=== PATIENT | female | born 1945 | race Caucasian/White ===

== ENCOUNTER 2025-02-13 22:13 | Inpatient (IN) | payer MEDICARE, OTHER, SELFPAY ==
[2025-02-13 17:13] VITALS: BP 126/94; BMI 17.9
[2025-02-13 17:53] LABS: % Basophils 0.4 % (0-2); % Eosinophils 0.4 % (0-6); % Immature Granulocytes 0.4 % (0-0.5); % Lymphocytes 11.5 % (20.5-51.1); % Monocytes 9.2 % (1.7-9.3); % Neutrophils 78.1 % (42.2-75.2); Absolute Basophils 0.1 10^3/uL (0-0.2); Absolute Eosinophils 0.1 10^3/uL (0-0.7); Absolute Immature Granulocytes 0.1 10^3/uL (0-0.05); Absolute Lymphocytes 1.4 10^3/uL (1.2-3.4); Absolute Monocytes 1.1 10^3/uL (0.1-0.6); Absolute Neutrophils 9.2 10^3/uL (1.4-6.5); Hematocrit 42.3 % (37.0-47.0); Hemoglobin 15.2 g/dL (12.0-16.0); Mean Corp Hgb Conc. 35.9 g/dL (33.0-37.0); Mean Corpuscular Hgb 33.4 pg (27.0-31.0); Mean Platelet Volume 9.8 fL (7.4-10.4); Nucleated Red Blood Cells % 0 %; Platelet Count 294 10^3/uL (130-400); Red Blood Cell Count 4.55 10^6/uL (4.20-5.40); Red Cell Dist. Width 12.6 % (11.5-14.5); White Blood Cell Count 11.8 10^3/uL (4.8-10.8)
[2025-02-13 19:36] VITALS: BP 123/85
[2025-02-13 20:00] VITALS: BP 125/86
[2025-02-13 20:11] LABS: ALT (SGPT) 17 U/L (0-35); AST (SGOT) 21 U/L (14-36); Albumin 2.8 g/dl (3.5-5.0); Alkaline Phosphatase 59 U/L (38-126); Blood Urea Nitrogen 13 mg/dl (7-17); Carbon Dioxide 27 mmol/L (22-30); Chloride 101 mmol/L (98-107); Creatine Phosphokinase < 20 U/L (30-135); Estimated Creatinine Clearance 54 ml/min; Glucose 89 mg/dl (70-99); Magnesium 1.5 mg/dl (1.6-2.3); Potassium 2.8 mmol/L (3.5-5.1); Sodium 132 mmol/L (135-145); Total Protein 5.2 g/dl (6.3-8.2); eGFR > 60.00
--- NOTE | 2025-02-13 20:39 | ED.GENMED ---
History of Present Illness
General
Chief Complaint: Failure to Thrive
Source: patient and family
Exam Limitations: none
Time Seen by Provider: 02/13/25 19:59
Nursing documentation reviewed up to this point in time: agreed with
History of Present Illness
History of Present Illness:
The patient is a 79-year-old female presenting with recurrent falls occurring approximately four times over the past week. The falls were primarily due to perceived leg weakness rather than dizziness or lightheadedness. Her gait instability
reportedly began this week. There is no significant history of falls prior to this. The patient recently moved to an assisted living facility within the last month. She reports a chronic lack of appetite, persisting for two years, with minimal
dietary intake primarily consisting of wine. Theres no mention of chronic medical conditions or daily medication use. Upon examination, the patient displayed a fluctuating heart rate, ranging from the 50s to 120s. Electrolyte imbalances were noted
with low potassium and magnesium levels, potentially diet-related. A recent head CT demonstrated no emergent findings but did show chronic changes consistent with age.
Past History
Past History
ED Past Medical History: HTN, Other (Cataracts, glaucoma) and Other (Chronic neck and low back pain. Cervical DJD. Psoriasis.)
Social History
Tobacco: Non-smoker
Alcohol: Daily (2-3 glasses of wine daily)
Drug: None
Personal:
Living: alone
Employment: Retired
Family History
Family History: Other (Noncontributory)
Review of Systems
Review of Systems
Allergies reviewed?: Yes
All Other Systems: ROS reviewed and negative except as documented in HPI and ROS
Phy Exam
Physical Exam
Physical Exam:
GENERAL: Alert , in no apparent distress
EYE: pupils equal and reactive
NECK: Supple, no significant adenopathy.
ENT: o/p clr, mmm.
CARDIAC: Regular rate and rhythm .
LUNGS: Clear breath sounds bilaterally, no acute respiratory distress, no wheezes/rales/rhonchi
ABDOMEN: Soft, without focal tenderness, no r/g, no cvat
NEUROLOGICAL: Alert and oriented, no focal neuro deficits
SKIN: Warm and dry, skin intact.
MUSCULOSKELETAL: No edema, well perfused.
PSYCH: Normal and appropriate interaction.
Course
Orders/Labs/Results
Orders:
Orders
02/13/25 17:43
EKG [Electrocardiogram (*1)] Urgent
Reason for Study: Fatigue / Weakness
EKG- Treatment ONCE
02/13/25 17:45
Complete Blood Count/With Diff Urgent
02/13/25 18:46
CT Head W/o Iv Contrast Urgent
Comment:
Reason For Exam: fall with head strike
02/13/25 19:32
Alcohol Urgent
Comprehensive Metabolic Panel Urgent
Creatine Phosphokinase Urgent
Magnesium Urgent
TSH Reflex To Free T4 Urgent
Comment: ADD ON
02/13/25 19:37
Add On- LAB Urgent
Tests Added?: CPK
02/13/25 20:38
Add On- LAB Urgent
Tests Added?: alcohol level
Multivitamin [Theragran] 1 tablet PO NOW STA
Potassium Chloride Powder [Klor-Con] 20 meq PO NOW STA
Thiamine HCl [Vitamin B1] 100 mg PO NOW STA
02/13/25 20:47
Add On- LAB Urgent
Tests Added?: TSH free 'T4
02/13/25 20:48
Potassium Chloride [KCl] 20 meq 0.9% Sodium Chloride 150 ml [Nss] 150 ml IV NOW
02/13/25 20:49
Magnesium Sulfate 1 grams 0.9% Sodium Chloride 100 ml [Nss] 100 ml IV NOW
02/13/25 21:27
Troponin I Routine
02/13/25 21:34
Admit/Transfer Patient As Directed
Co-Sign Provider:
Level of Care: Inpatient admission
Assign to:: Telemetry
Physician / Group: [email or web address]
Diagnosis: Falls, ambulatory dysfunction, Intermittent tachycardia
Reason for Telemetry: Other
Other Reason for Telemetry: Intermittent tachycardia
Date to Stop Telemetry: 02/15/25
Time to Stop Telemetry: 11:00
Reason for Hospitalization: Falls, ambulatory dysfunction, Intermittent tachycardia concerning for ETOH WDS,
protein calorie malnutrition, Low K and low Mg
Expected length of stay greater than two midnights?: Yes
ELOS- Estimated Length of Stay in days: 3
I certify the patient meets the requirements for IP care: Yes
02/13/25 21:38
Code Status As Directed
Resuscitation Status: Full Code
02/13/25 22:47
0.9% Sodium Chloride 1000 ml [Nss] 1,000 ml IV 80 mls/hr
0.9% Sodium Chloride [Nss (Preservative Free)] See Protocol IV PRN PRN
Acetaminophen [Tylenol] 650 mg PO Q4HPRN PRN
Bisacodyl [Dulcolax] 10 mg RECTAL [id number] PRN
Docusate W/Senna [Senokot-S] 1 tablet PO BIDPRN PRN
FOLic ACID [Folvite] 1 mg 0.9% Sodium Chloride 50 ml [Nss] 50 ml IV DAILYPRN
Lorazepam [Ativan] 1 mg IV Q1HPRN PRN
Lorazepam [Ativan] 1 mg PO Q2HPRN PRN
Lorazepam [Ativan] 2 mg IV Q1HPRN PRN
Polyethylene Glycol Powder [Miralax] 17 grams PO DAILYPRN PRN
02/13/25 22:47
Case Management Consult Once
Case Management Consult: Other
Comment: Substance abuse counseling
DIETARY IP CONSULT Routine
Reason for Consult: Nutrition support, possible refeeding guidelines
DIETARY IP CONSULT Routine
Reason for Consult: protein calorie malnutrtion due to poor PO diet,
GGTP Urgent
Activity As Directed
Activity Level: With Assistance
MSAS SCORE As Directed
MSAS Score 0-4: Repeat MSAS every 2 hours until 0-4 for three consecutive assessments, then every 4 hours x 48
hours.
MSAS Score 5-7: For MILD withdrawl symptoms. Repeat MSAS and RASS every 2 hours
MSAS Score 8-11: For MODERATE withdrawal symptoms. Repeat MSAS and RASS every 1 hour. Consider ICU or IMU
level of care.
MSAS Score > 11: For SEVERE withdrawal symptoms. Repeat MSAS and RASS every 1 hour. Notify provider, consider
ICU level of care.
MSAS Additional Instructions: If no improvement or no decrease in score from severe to moderate within 12
hours, consult psychiatry
MSAS Notify Provider: Notify provider if patient requires more than 10 mg of Lorazepam in eight hour period.
Vital Signs As Directed
Frequency: Per unit guidelines
Weight As Directed
Frequency: Weekly
DX Deep Vein Thrombosis Video Routine
02/13/25 23:11
Urinalysis Reflex To Culture Urgent
Date Specimen was Collected: 02/13/25
Time Specimen was Collected: 23:10
02/14/25 00:00
Thiamine Injection 200 mg IV Q8
02/14/25 Breakfast
Regular
At Your Request: Full Participation
Complete Blood Count/No Diff IN AM
Comprehensive Metabolic Panel IN AM
Ferritin IN AM
Folate IN AM
Vitamin B12 IN AM
02/14/25 08:00
FOLic ACID [Folvite] 1 mg PO DAILY
Heparin 5,000 units SC Q12
02/15/25 11:00
DC Protocol for Telemetry ONCE
02/17/25 08:00
Thiamine HCl [Vitamin B1] 100 mg PO BID
Abnormal Lab Results
02/13/25 02/13/25
17:45 19:32
WBC 11.8 H 10^3/uL
(4.8-10.8)
MCH 33.4 H pg
(27.0-31.0)
Abs Immat Gran (auto) 0.1 H 10^3/uL
(0-0.05)
Absolute Neuts (auto) 9.2 H 10^3/uL
(1.4-6.5)
Absolute Monos (auto) 1.1 H 10^3/uL
(0.1-0.6)
Neutrophils % 78.1 H %
(42.2-75.2)
Lymphocytes % 11.5 L %
(20.5-51.1)
Sodium 132 L mmol/L
(135-145)
Potassium 2.8 L mmol/L
(3.5-5.1)
Magnesium 1.5 L mg/dl
(1.6-2.3)
Total Bilirubin 2.0 H mg/dl
(0.2-1.3)
Creatine Kinase < 20 L U/L
(30-135)
Total Protein 5.2 L g/dl
(6.3-8.2)
Albumin 2.8 L g/dl
(3.5-5.0)
02/13/25 17:45
02/13/25 19:32
Vital Signs
Initial and Last Documented VS:
Initial Vital Signs
Temp Pulse Resp BP Pulse Ox
97.7 F 103 14 126/94 95
02/13/25 17:13 02/13/25 17:13 02/13/25 17:13 02/13/25 17:13 02/13/25 17:13
Last Documented Vital Signs
Temp Pulse Resp BP Pulse Ox
97.7 F 75 16 151/108 98
02/13/25 22:47 02/13/25 22:47 02/13/25 22:47 02/13/25 22:47 02/13/25 22:47
MDM/Problems Addressed
MDM/Problems Addressed:
The patient will be admitted to monitor the fluctuating heart rate and address electrolyte imbalances. Physical therapy evaluation for balance is planned, and dietary assessment will be conducted to optimize nutritional intake. Here patient's
electrolytes showing low potassium 2.8 as well as magnesium 1.5. Patient was given IV doses of this as well as oral dose and thiamine. She does apparently drink wine daily roughly 1 bottle per day. She was given dose of thiamine. CT without
emergent findings otherwise plan to admit considering multiple potential acute abnormalities with significant amatory dysfunction.
*Pulse Oximetry
SaO2: 98
Oxygen Mode of Delivery: Room air
Patient hypoxic: no
*Critical Care Note
Total Time (30-74mins, 75-104mins- exclusive of procedures): Not Applicable
ED Attending Note
-
Portions of this chart may have been created with voice recognition software.� Occasional wrong word or��sound alike� substitutions may have occurred due to the inherent limitations of voice recognition software.
Discharge Plan
Departure
Patient Disposition: Admit
Date of Disposition: 02/13/25
Time of Disposition: 22:08
Admit to: Telemetry
Admit to doctor: Sneha
Presentation/result/management discussed w/ accepting MD/DO: Hospitalist
Patient with high blood pressure during this ER visit?: No
Condition: Good
Covid-19: Not Applicable
Discharge Problem:
Ambulatory dysfunction, Acute hypokalemia, Hypomagnesemia, Atrial tachycardia, Alcohol abuse, Frequent falls
Interventions
Interventions:
*Risk Screen - Suicide Last Done: 02/13/25 17:13
*General Assessment Last Done: 02/13/25 17:13
*Neglect/Abuse Screening Last Done: 02/13/25 17:13
*ED- Fall Risk Assessment Last Done: 02/13/25 17:13
*ED COVID-19 Vaccine History Last Done: 02/13/25 17:13
*Nursing Disposition Last Done: 02/13/25 22:22
Discharge Date and Time
Discharge Date/Time: 02/13/25 22:22
[2025-02-13] MEDS: VITAMIN B1 100 MG PO (21:01)
[2025-02-13] MEDS: THERAGRAN 1 TABLET PO (21:01)
--- NOTE | 2025-02-13 21:17 | HPS.HSE ---
Family Physician
-
Family Physician: Zackary Juan
Chief Complaint
-
recuurent falls and Steven wekness
History of Present Illness
79F recent assisted living resident HX HTN, Chronic neck and low back pain. Cervical DJD seen at ER for falls:
- recurrent falls occurring four times over the past week
- report perceived leg weakness rather than dizziness or lightheadedness.
- Gait instability reportedly began this week
- recently moved to an assisted living facility within the last month.
- HX chronic lack of appetite, persisting for two years, with minimal dietary intake primarily consisting of wine.
- no mention of chronic medical conditions or daily medication use.
Medical History
Past Medical History
Past Medical History: Reports HTN and Other (Cataracts, glaucoma) and Other (Chronic neck and low back pain. Cervical DJD, Psoriasis.)
Past Surgical History: Reports Cardiac
Social History
Tobacco: Non-smoker
Alcohol: Daily
Drug: None
Living: Assisted Living
Family History
Family History: Not pertinent
Allergies / Home Medications
Allergies reflects when Allergies were last updated in [employer].
Home Medications with original date entered in [employer]
Allergy/Medication List:
Allergies
Allergy/AdvReac Type Severity Reaction Status Date / Time
No Known Allergies Allergy Verified 05/11/23 21:46
Home Medications
No Meds [No Current Medications] 02/13/25
Review of Systems
-
Constitutional: Reports No Symptoms
EENT: Reports No Symptoms
Respiratory: Reports No Symptoms
Cardiac: Reports No Symptoms
Abdomen/GI: Reports No Symptoms
: Reports No Symptoms
Musculoskeletal: Reports See HPI
Skin: Reports No Symptoms
Neurological: Reports See HPI
Endocrine: Reports No Symptoms
Hematologic/Lymphatic: Reports No Symptoms
Psych: Reports No Symptoms
Physical Exam
Vital Signs
Vital Signs
Temp Pulse Resp BP Pulse Ox
97.7 F 116 20 125/86 98
02/13/25 17:13 02/13/25 20:30 02/13/25 20:30 02/13/25 20:00 02/13/25 20:40
Physical Exam
HEENT: NormoCephalic, Moist mucous membranes and Atraumatic
Respiratory: Clear
Cardiac: S1/S2 and Regular Rhythm; No Murmur or Rub
GI: Soft, Non Tender, Non Distended and Normal Bowel Sounds; No Organomegaly
Rectal: Deferred by Provider
Musculoskeletal: No Clubbing, No Cyanosis and No Edema
Skin: No Rash
Neuro: Nonfocal/grossly intact
Laboratory Results
-
02/13/25 17:45
02/13/25 19:32
Laboratory Results
Total Bilirubin 2.0 mg/dl (0.2-1.3) H 02/13/25 19:32
AST 21 U/L (14-36) 02/13/25 19:32
ALT 17 U/L (0-35) 02/13/25 19:32
Alkaline Phosphatase 59 U/L (38-126) 02/13/25 19:32
Data Reviewed
-
CT Scan: Report Reviewed by me
Lab Data: Labs Reviewed by me
Impression/Plan
-
Selected Entries
02/13/25
17:13
Temp 97.7 F
Pulse 103
Resp Rate 14
Blood pressure 126/94
SaO2 95
Oxygen Mode of Delivery Room air
Laboratory Tests
02/13/25 02/13/25 02/13/25
17:45 19:32 20:59
WBC 11.8 H
Sodium 132 L
Potassium 2.8 L
Creatinine 0.6
eGFR > 60.00
Magnesium 1.5 L
Total Bilirubin 2.0 H
Creatine Kinase < 20 L
Troponin I Pending
Albumin 2.8 L
TSH (Reflex) Pending
Pending UA
Pending TPNI
Pending TSH
Pending ETOH level
HCT
1. No CT evidence for acute intracranial hemorrhage.
2. Moderate bilateral frontal and parietal lobe volume loss.
3. Moderate cerebellar volume loss.
4. Severe white matter leukoaraiosis in the frontal and parietal lobes.
5. Chiari I malformation.
NO PRIOR hospitalist admission:
ASSESSMENT & PLAN
Pending Rx reconciliation
Falls and ambulatory dysfunction
DDX: ETOH associated balance dysfunction , myopathy , peripheral neuroapthy and ataxia
- 5 falls in the last week due to weakness
- Nl CPK
- Pending TSH
- check B12 and Folate
- PT/OT
Intermittent tachycardia concerning for ETOH WDS
Suspect ETOH use disorder
- check GGT
- EtOH WD protocol
- Fall precaution
Suspect ETOH use disorder led to protein calorie malnutrition due to inadequate PO nutritious diet consumption
Mild Hypokalemia - s/p IV KCL 20 [place] + PO 20
Mild Hypomagnesemia - s/p IV Mg 1gm
Hypoalbuminemia
- Trend Mg and K
- Dietary consult
HX HTN
DVT Px: SQH
Code: Full
IP TLM
[2025-02-13] MEDS: MAGNESIUM SULFATE 102 GRAMS IV (21:22)
[2025-02-13] MEDS: KCL 160 MEQ IV (21:22)
[2025-02-13 21:52] LABS: TSH Reflex To Free T4 0.66 uIU/ml (0.47-4.68)
[2025-02-13 22:00] VITALS: BP 123/90
[2025-02-13 22:05] LABS: Troponin I < 0.012 ng/ml
--- NOTE | 2025-02-13 22:40 | PTCARENOTE ---
Pt admitted to 316-2 from ED, pulled over to bed. AAOx3, forgetful. bed alarm on and activated. Denies complaints. Call romo within reach.
[2025-02-13 22:47] VITALS: BP 151/108; BMI 19.7
[2025-02-13 23:18] LABS: Urine Albumin 2+ (Neg - Trace); Urine Bilirubin 1+ (Negative); Urine Character Clear (Clear); Urine Color Yellow; Urine Glucose Negative (Negative); Urine Ketone 1+ (Negative); Urine Leukocyte 2+ (Negative); Urine Nitrite Negative (Negative); Urine Occult Blood 4+ (Negative); Urine Urobilinogen 3+ (Neg - 1+)
[2025-02-13 23:20] LABS: Alcohol None Detected
[2025-02-13 23:32] LABS: Urine Squamous Cell 16-20 /LPF (Few)
[2025-02-13 23:33] LABS: Urine Bacteria Many (Negative); Urine Red Blood Cell >100 /HPF (0-2)
[2025-02-13] MEDS: NSS 1000 IV (23:39)
[2025-02-13] MEDS: THIAMINE INJECTION 200 MG IV (23:46)
[2025-02-14] VITALS (8 sets, daily range): BP systolic 128–151; BP diastolic 79–98; PULSE 80; O2SAT 99; BMI 19.7
[2025-02-14 00:14] LABS: GGTP 28 U/L (12-43)
[2025-02-14 08:36] LABS: Hematocrit 38.9 % (37.0-47.0); Hemoglobin 13.4 g/dL (12.0-16.0); Mean Corp Hgb Conc. 34.4 g/dL (33.0-37.0); Mean Corpuscular Hgb 32.8 pg (27.0-31.0); Mean Corpuscular Volume 95.3 fL (81.0-99.0); Mean Platelet Volume 10.4 fL (7.4-10.4); Platelet Count 263 10^3/uL (130-400); Red Blood Cell Count 4.08 10^6/uL (4.20-5.40); Red Cell Dist. Width 12.3 % (11.5-14.5); White Blood Cell Count 9.6 10^3/uL (4.8-10.8)
[2025-02-14 09:06] LABS: ALT (SGPT) 16 U/L (0-35); AST (SGOT) 23 U/L (14-36); Albumin 2.7 g/dl (3.5-5.0); Alkaline Phosphatase 67 U/L (38-126); Blood Urea Nitrogen 12 mg/dl (7-17); Calcium 8.8 mg/dl (8.4-10.2); Carbon Dioxide 26 mmol/L (22-30); Chloride 103 mmol/L (98-107); Estimated Creatinine Clearance 56 ml/min; Glucose 58 mg/dl (70-99); Potassium 3.8 mmol/L (3.5-5.1); Sodium 134 mmol/L (135-145); Total Bilirubin 1.7 mg/dl (0.2-1.3); eGFR > 60.00
[2025-02-14] MEDS: SENOKOT-S 1 TABLET PO (09:24)
[2025-02-14] MEDS: TYLENOL 650 MG PO ×3 (09:24→21:13)
[2025-02-14] MEDS: NSS 1000 IV (09:24)
[2025-02-14] MEDS: FOLVITE 1 MG PO (09:24)
[2025-02-14] MEDS: TRUSOPT 2% OPHTHALMIC SOLUTION 1 DROP BOTH EYES ×2 (09:25→19:52)
[2025-02-14] MEDS: TIMOPTIC 0.5% OPHTHALMIC SOLUTION 1 DROP BOTH EYES ×2 (09:25→19:52)
[2025-02-14] MEDS: HEPARIN 5000 UNITS SC ×2 (09:26→19:52)
[2025-02-14] MEDS: THIAMINE INJECTION 200 MG IV ×2 (09:46→16:15)
[2025-02-14 10:04] LABS: Folate 7.2 ng/ml (2.76-20); Vitamin B12 620 pg/ml (239-931)
--- NOTE | 2025-02-14 10:46 | CM ---
Patient seen at bedside on . Patient stated that she is currently living at [facility]. Patient chart reflects address of [facility] but no transfer form scanned in at this time. PCP is Dr. Zackary Juan and patient stated that she is in the
facility and is uncertain if she is SNF or Personal Care level needs. CM called and left for SNF liaison at [facility]. Awaiting call back. CM will continue to follow for discharge planning needs.
Plan; return to facility following clarification as to which level patient is at.
[2025-02-14 11:22] LABS: Magnesium 2.1 mg/dl (1.6-2.3); Phosphorus 2.9 mg/dl (2.5-4.5)
--- NOTE | 2025-02-14 11:51 | W.PN.HOSP.TC ---
Today's Communication/Plan
-
Check a chest x-ray
Continue with IV fluid
Dietary eval
Speech evaluation
PT evaluation
Assessment / Plan
Assessment / Plan
#Falls and ambulatory dysfunction likely 2/2 ETOH associated balance dysfunction, intoxication, peripheral neuroapthy and ataxia
#5 falls in the last week due to weakness
TSH normal
B12 folate normal
PT and OT evaluation
CT head negative for acute pathology
Check a chest x-ray, bilateral hip x-ray with pelvis x-ray
#Intermittent tachycardia concerning for ETOH WDS
#Suspect ETOH use disorder
Continue with IV fluid resuscitation.
EtOH WD protocol
Fall precaution
#Suspect ETOH use disorder led to protein calorie malnutrition chronic illness due to inadequate PO nutritious diet consumption
#Hypokalemia hypomagnesemia
#Hypoalbuminemia
Trend Mg and K. Replete and monitor
Dietary consult
Counseled on complete alcohol cessation as patient with increased risk of falls leading to fractures, cerebral hemorrhage. Patient verbalized understanding.
#Mild hyponatremia likely secondary to dehydration
Resolved
#Suspected dysphagia
Check chest x-ray
Speech evaluation
DVT Px: SQH
Code: Full
Anticipated Discharge: > 48 hours
Subjective/Interval History
-
Date of Service: February 14, 2025
States of poor appetite at home
States drinks half a bottle of wine every day
States of multiple falls at home
Denies any hip pain
Objective Data
-
Labs:
Laboratory Results
02/14/25
06:02
WBC 9.6
Hgb 13.4
Hct 38.9
Plt Count 263
Sodium 134 L
Potassium 3.8 D
Chloride 103
Carbon Dioxide 26
BUN 12
Creatinine 0.6
Glucose 58 L
Calcium 8.8
Total Bilirubin 1.7 H
AST 23
ALT 16
Alkaline Phosphatase 67
Vital Signs:
Vital Signs
Temp Pulse Resp BP Pulse Ox
97.6 F 71 16 135/90 99
02/14/25 11:27 02/14/25 11:27 02/14/25 11:27 02/14/25 11:27 02/14/25 11:27
I&O
02/13/25 02/14/25 02/15/25
06:59 06:59 06:59
Intake Total 720 / 720
Balance 720 / 720
Physical Exam
-
General: No Apparent Distress and Cachectic
HEENT: Normocephalic, Atraumatic, Moist Mucous Membranes and Other (Right lower jaw bruise noted)
Respiratory: Clear to Auscultation
Cardiac: Regular Rhythm and S1/S2; Negative Murmur, Rub or Gallop
GI: Soft, Nontender, Nondistended and Normal Bowel Sounds; Negative Organomegaly
Rectal: Deferred by Provider
Musculoskeletal: No Clubbing, No Cyanosis and No Edema
Skin: Negative Rash
Neuro: Awake, AO x 3, No Motor Deficits and Nonfocal/Grossly Intact
Psych: Calm
Data Reviewed
-
Total Time Spent with Patient (in minutes): 55
--- NOTE | 2025-02-14 11:54 | PTCARENOTE ---
Mrs Chand had a Cervical plasty several years ago and has has progressive issues with inability to eat since that time. In addition to the cervical plasty procedure she started drinking about a half a bottle of wine a day. PT is alert able to make
needs known, cachectic appearing ith severe clavicular scapula christianity and scapula muslce loss and orbital fat pad loss. PT stated she has lost well over thirty pounds this year and has minimal food intake. admits to drinking instead. PT with CT
scan showing Munira fomration 1, aware, . I gave her one pill and she had tremendous difficulty getting one pill down. it was stuck in her lower throat area and she insisted it went down the correct tube and this happens every time she eats no
resp distress however I heard audible wetness and course breath sounds without a stethoscope. It cleared about five minutes later. She stated this happens all the time for her and reason she wont eat food and drinks only. The son came in and
confirmed this. aware and ordered CXR and speech consult ordered.
--- NOTE | 2025-02-14 14:52 | PTOTSP ---
Speech therapy
Presentation: Patient's speech was WNL but vocal quality appeared to be weak. Patient denied communicative deficits. Patient was partially oriented but appeared to demonstrate lack of insight.
Patient reports poor intake (thin liquids and some soft solids).
Per RN, patient had an episode where the pills appeared to be stuck in her esophagus with thin liquids this AM.
Swallowing: Patient stated that she has been having inconsistent difficulty with her swallowing for awhile now which has caused her to not eat much at home. Patient reports drinking most of her calories with some soft solids (preferably soups).
Patient has lost a substantial amount of weight recently which she relates to her decreased oral intake.
Swallowing Function: WATER QUALITY SPECIALIST observed patient with several sips of thin liquids and bites of puree and regular consistency solids in which patient appeared to tolerate as she did not exhibit any overt clinical s/sx of aspiration or difficulty with
mastication/ manipulation. Patient does appear to demonstrate lack of insight.
Given the above information, consider VSE to r/o aspiration (recent CXR) and consider Ensure to assist with caloric intake.
Recommendations:
1) Continuation of regular consistency solids and thin liquids
2) Standard aspiration precautions
3) Consideration of Ensure to help with caloric intake
4) Consideration of nutrition consult for FTT
5) Consideration of VSE to r/o aspiration
6) Medications as tolerated
7) Consideration of cognitive assessment given her lack of insight
Plan: WATER QUALITY SPECIALIST will continue to follow to ensure tolerance; pending hospitalization.
[2025-02-14] MEDS: XALATAN OPHTHALMIC SOLUTION 1 DROP LEFT EYE (21:14)
[2025-02-15] VITALS (7 sets, daily range): BP systolic 127–179; BP diastolic 63–108
[2025-02-15] MEDS: THIAMINE INJECTION 200 MG IV ×4 (00:03→23:05)
[2025-02-15] MEDS: NSS 1000 IV ×2 (01:27→15:55)
[2025-02-15 08:13] LABS: ALT (SGPT) 17 U/L (0-35); AST (SGOT) 21 U/L (14-36); Albumin 2.6 g/dl (3.5-5.0); Alkaline Phosphatase 67 U/L (38-126); Blood Urea Nitrogen 7 mg/dl (7-17); Calcium 8.6 mg/dl (8.4-10.2); Carbon Dioxide 24 mmol/L (22-30); Chloride 106 mmol/L (98-107); Estimated Creatinine Clearance 56 ml/min; Glucose 80 mg/dl (70-99); Magnesium 1.6 mg/dl (1.6-2.3); Potassium 3.1 mmol/L (3.5-5.1); Sodium 134 mmol/L (135-145); Total Bilirubin 1.6 mg/dl (0.2-1.3); Total Protein 4.9 g/dl (6.3-8.2); eGFR > 60.00
[2025-02-15] MEDS: SENOKOT-S 1 TABLET PO (08:42)
[2025-02-15] MEDS: TIMOPTIC 0.5% OPHTHALMIC SOLUTION 1 DROP BOTH EYES ×2 (08:42→22:02)
[2025-02-15] MEDS: FOLVITE 1 MG PO (08:42)
[2025-02-15] MEDS: HEPARIN 5000 UNITS SC ×2 (08:42→22:02)
[2025-02-15] MEDS: TRUSOPT 2% OPHTHALMIC SOLUTION 1 DROP BOTH EYES ×2 (08:43→22:02)
[2025-02-15] MEDS: KCL 270 MEQ IV (08:52)
--- NOTE | 2025-02-15 12:39 | W.PN.HOSP.TC ---
Today's Communication/Plan
-
Continue with IV fluids for additional 24 hours
Encourage increase p.o. intake
Video swallow evaluation in the morning
Rehab evaluation ongoing
Assessment / Plan
Assessment / Plan
#Falls and ambulatory dysfunction likely 2/2 ETOH associated balance dysfunction, intoxication, peripheral neuroapthy and ataxia
#5 falls in the last week due to weakness
TSH normal
B12 folate normal
PT and OT evaluation
CT head negative for acute pathology
X-rays of the hip and pelvis negative
#Intermittent tachycardia concerning for ETOH WDS
#Suspect ETOH use disorder
Continue with IV fluid resuscitation.
EtOH WD protocol
Fall precaution
#Suspect ETOH use disorder led to protein calorie malnutrition chronic illness due to inadequate PO nutritious diet consumption
#Hypokalemia hypomagnesemia
#Hypoalbuminemia
Trend Mg and K. Replete and monitor
Dietary consult
Counseled on complete alcohol cessation as patient with increased risk of falls leading to fractures, cerebral hemorrhage. Patient verbalized understanding.
#Mild hyponatremia likely secondary to dehydration
Resolved
#Suspected dysphagia
Chest Xray showing Mild subpleural opacity in the basilar segments of the left lower lobe. Diagnostic possibilities are (1) mild subsegmental atelectasis/scarring or (2) mild aspiration pneumonitis.
WBC normal. Afebrile.
Continue with current diet. VSE ordered for morning.
Speech evaluation
#History of lumbar fracture status post vertebroplasty L2
#Severe protein caloric malnutrition of chronic illness and due to alcohol abuse
Liberalize diet
Ensure recommended
Albumin low noted
Encouraged to increase p.o. intake
DVT Px: SQH
Code: Full
PT/OT SNF versus home health. Patient would benefit from SNF.
Anticipated Discharge: 24 - 48 hours
Subjective/Interval History
-
Date of Service: February 15, 2025
States of feeling extremely weak this morning
Was not able to tolerate sitting in chair for long period of time
Objective Data
-
Labs:
Laboratory Results
02/15/25
07:00
Sodium 134 L
Potassium 3.1 L
Chloride 106
Carbon Dioxide 24
BUN 7
Creatinine 0.6
Glucose 80
Calcium 8.6
Total Bilirubin 1.6 H
AST 21
ALT 17
Alkaline Phosphatase 67
Vital Signs:
Vital Signs
Temp Pulse Resp BP Pulse Ox
97.8 F 66 16 152/108 100
02/15/25 03:36 02/15/25 11:00 02/15/25 11:00 02/15/25 11:00 02/15/25 11:00
I&O
02/14/25 02/15/25 02/16/25
06:59 06:59 06:59
Intake Total 720 / 720 1960 / 1960
Output Total 200 / 200
Balance 720 / 720 1760 / 1760
Physical Exam
-
General: No Apparent Distress and Cachectic
HEENT: Normocephalic, Atraumatic, Moist Mucous Membranes and Other (Right lower jaw bruise noted)
Respiratory: Clear to Auscultation
Cardiac: Regular Rhythm and S1/S2; Negative Murmur, Rub or Gallop
GI: Soft, Nontender, Nondistended and Normal Bowel Sounds; Negative Organomegaly
Rectal: Deferred by Provider
Musculoskeletal: No Clubbing, No Cyanosis and No Edema
Skin: Negative Rash
Neuro: Awake, AO x 3, No Motor Deficits and Nonfocal/Grossly Intact
Psych: Calm
[2025-02-15] MEDS: XALATAN OPHTHALMIC SOLUTION 1 DROP LEFT EYE (22:02)
[2025-02-16] VITALS (7 sets, daily range): BP systolic 113–149; BP diastolic 75–107
[2025-02-16] MEDS: NSS 1000 IV ×2 (04:37→16:24)
[2025-02-16] MEDS: THIAMINE INJECTION 200 MG IV ×2 (08:20→16:30)
[2025-02-16] MEDS: HEPARIN 5000 UNITS SC ×2 (08:21→21:22)
[2025-02-16] MEDS: TIMOPTIC 0.5% OPHTHALMIC SOLUTION 1 DROP BOTH EYES ×2 (08:21→21:24)
[2025-02-16] MEDS: FOLVITE 1 MG PO (08:21)
[2025-02-16] MEDS: TRUSOPT 2% OPHTHALMIC SOLUTION 1 DROP BOTH EYES ×2 (08:22→21:24)
[2025-02-16 08:26] LABS: ALT (SGPT) 17 U/L (0-35); AST (SGOT) 21 U/L (14-36); Albumin 2.6 g/dl (3.5-5.0); Alkaline Phosphatase 71 U/L (38-126); Blood Urea Nitrogen 5 mg/dl (7-17); Calcium 8.8 mg/dl (8.4-10.2); Carbon Dioxide 23 mmol/L (22-30); Chloride 109 mmol/L (98-107); Estimated Creatinine Clearance 56 ml/min; Potassium 3.3 mmol/L (3.5-5.1); Sodium 136 mmol/L (135-145); Total Bilirubin 1.3 mg/dl (0.2-1.3); eGFR > 60.00
[2025-02-16 09:02] LABS: Glucose 69 mg/dl (70-99)
--- NOTE | 2025-02-16 09:15 | W.PN.HOSP.TC ---
Today's Communication/Plan
-
DC planning, dc in am
MVI
Vitamin D
Potassium with magnesium supplement
Assessment / Plan
Assessment / Plan
Physical Exam
-
General: No Apparent Distress and Cachectic
HEENT: Normocephalic, Atraumatic, Moist Mucous Membranes and Other (Right lower jaw bruise noted)
Respiratory: Clear to Auscultation
Cardiac: Regular Rhythm and S1/S2; Negative Murmur, Rub or Gallop
GI: Soft, Nontender, Nondistended and Normal Bowel Sounds;
Rectal: Deferred by Provider
Musculoskeletal: No Clubbing, No Cyanosis and No Edema
Skin: Negative Rash
Neuro: Awake, AO x 3, No Motor Deficits and Nonfocal/Grossly Intact
Psych: Calm
#Falls and ambulatory dysfunction likely 2/2 ETOH associated balance dysfunction, intoxication, peripheral neuropathy and ataxia
#5 falls in the last week due to weakness
TSH normal
B12 folate normal
PT and OT evaluation
CT head negative for acute pathology
X-rays of the hip and pelvis negative
#Intermittent tachycardia concerning for ETOH WDS
#Suspect ETOH use disorder
Continue with IV fluid resuscitation.
EtOH WD protocol
Fall precaution
# Hypokalemia
replace
# Hyponatremia
#Suspect ETOH use disorder led to protein calorie malnutrition chronic illness due to inadequate PO nutritious diet consumption
#Hypokalemia hypomagnesemia
#Hypoalbuminemia
Trend Mg and K. Replete and monitor
Dietary consult
Counseled on complete alcohol cessation as patient with increased risk of falls leading to fractures, cerebral hemorrhage. Patient verbalized understanding.
#Mild hyponatremia likely secondary to dehydration
Resolved
#Suspected dysphagia
Chest Xray showing Mild subpleural opacity in the basilar segments of the left lower lobe. Diagnostic possibilities are (1) mild subsegmental atelectasis/scarring or (2) mild aspiration pneumonitis.
WBC normal. Afebrile.
Continue with current diet. VSE ordered for morning.
Speech evaluation
#History of lumbar fracture status post vertebroplasty L2
#Severe protein caloric malnutrition of chronic illness and due to alcohol abuse
Liberalize diet
Ensure recommended
Albumin low noted
Encouraged to increase p.o. intake
DVT Px: SQH
Code: Full
Total time spent to see the patient, examine the patient, review data and lab result, discuss treatment plan with patient, nursing staff around 55 minutes
Anticipated Discharge: Within 24 hours
Subjective/Interval History
-
Date of Service: February 16, 2025
No chest pain
No sob
No nausea
feels she can eat more
Objective Data
-
Labs:
Laboratory Results
02/16/25
07:02
Sodium 136
Potassium 3.3 L
Chloride 109 H
Carbon Dioxide 23
BUN 5 L
Creatinine 0.5 L
Glucose 69 L
Calcium 8.8
Total Bilirubin 1.3
AST 21
ALT 17
Alkaline Phosphatase 71
Vital Signs:
Vital Signs
Temp Pulse Resp BP Pulse Ox
97.4 F 54 16 119/79 98
02/16/25 07:00 02/16/25 07:00 02/16/25 07:00 02/16/25 07:00 02/16/25 07:00
I&O
02/15/25 02/16/25 02/17/25
06:59 06:59 06:59
Intake Total 1959 / 1959 1849 / 1849
Output Total 200 / 200 350 / 350
Balance 176 / 1760 1500 / 1500
--- NOTE | 2025-02-16 09:51 | CM ---
Spoke with son Bret regarding PT eval HH vs. SNF
Patient resides at [facility]
son will be call back after speaking with brothers regarding HH vs. SNF
options of home health discussed as well
states has private aides ([employer]) lined up to assist, also ordered Life Alert Bracelet that will alert his phone
video swallow today, PT to continue to work with patient
PLAN: Home Health with private aides vs. SNF, son will get get back to CM
[2025-02-16] MEDS: VITAMIN D3 (cholecalciferol) 50 MCG PO (10:54)
[2025-02-16] MEDS: THERAGRAN 1 TABLET PO (10:54)
[2025-02-16] MEDS: KLOR-CON 20 MEQ PO (11:22)
--- NOTE | 2025-02-16 12:21 | PTOTSP ---
Video Swallow Examination
Oral phase within functional limits. Collection of contrast within vallecula observed across trials. Pharyngeal stasis cleared with use of head turn left during a dry swallow. No aspiration observed. Trace transient laryngeal penetration of thin
liquid (teaspoon + chin tuck, and consecutive straw). Esophagus with significant horizontal orientation while seated is likely contributing to significant amount of retention noted during lateral sweep. This retained contrast places patient at an
elevated risk for reverse aspiration
Recommend:
1. Continue regular solids and thin liquids.
2. Single sips of liquid and small bites of solid.
3. Once mouth is clear, generate dry swallow while head is turned to left.
4. Intersperse sip of liquid after every 2-3 bites of solid.
5. Reflux precautions.
6. Given degree of retained contrast in esophagus, consider GI follow up (based on patient complaints esophageal findings are likely chronic).
[2025-02-16 17:20] LABS: Glucose - Point of Care 76 mg/dl (70-99)
[2025-02-16] MEDS: XALATAN OPHTHALMIC SOLUTION 1 DROP LEFT EYE (21:22)
[2025-02-16] MEDS: MAGNESIUM OXIDE 500 MG PO (21:24)
--- NOTE | 2025-02-16 21:30 | PTCARENOTE ---
patient was offered oral care, but stated that it is her preference to do it in the morning. patient refused.
[2025-02-17 03:00] VITALS: BP 120/83
[2025-02-17 07:07] VITALS: BP 126/89
[2025-02-17 08:18] LABS: Blood Urea Nitrogen 3 mg/dl (7-17); Calcium 9.2 mg/dl (8.4-10.2); Carbon Dioxide 27 mmol/L (22-30); Chloride 108 mmol/L (98-107); Estimated Creatinine Clearance 56 ml/min; Glucose 82 mg/dl (70-99); Magnesium 1.4 mg/dl (1.6-2.3); Potassium 3.9 mmol/L (3.5-5.1); Sodium 137 mmol/L (135-145); eGFR > 60.00
[2025-02-17] MEDS: FOLVITE 1 MG PO (08:31)
[2025-02-17] MEDS: THERAGRAN 1 TABLET PO (08:31)
[2025-02-17] MEDS: VITAMIN D3 (cholecalciferol) 50 MCG PO (08:31)
[2025-02-17] MEDS: VITAMIN B1 100 MG PO (08:31)
[2025-02-17] MEDS: HEPARIN 5000 UNITS SC (08:31)
[2025-02-17] MEDS: MAGNESIUM OXIDE 500 MG PO (08:31)
[2025-02-17] MEDS: TIMOPTIC 0.5% OPHTHALMIC SOLUTION 1 DROP BOTH EYES (08:32)
[2025-02-17] MEDS: TRUSOPT 2% OPHTHALMIC SOLUTION 1 DROP BOTH EYES (08:32)
--- NOTE | 2025-02-17 09:09 | W.PN.HOSP.TC ---
Today's Communication/Plan
-
dc
Assessment / Plan
Assessment / Plan
Physical Exam
-
General: No Apparent Distress and Cachectic
HEENT: Normocephalic, Atraumatic, Moist Mucous Membranes and Other (Right lower jaw bruise noted)
Respiratory: Clear to Auscultation
Cardiac: Regular Rhythm and S1/S2; Negative Murmur, Rub or Gallop
GI: Soft, Nontender, Nondistended and Normal Bowel Sounds;
Rectal: Deferred by Provider
Musculoskeletal: No Clubbing, No Cyanosis and No Edema
Skin: Negative Rash
Neuro: Awake, AO x 3, No Motor Deficits and Nonfocal/Grossly Intact
Psych: Calm
#Falls and ambulatory dysfunction likely 2/2 ETOH associated balance dysfunction, intoxication, peripheral neuropathy and ataxia
#5 falls in the last week due to weakness
TSH normal
B12 folate normal
PT and OT evaluation
CT head negative for acute pathology
X-rays of the hip and pelvis negative
#Intermittent tachycardia concerning for ETOH WDS
# ETOH use disorder
s/p IV fluid resuscitation.
EtOH WD protocol
Fully oriented and reported willingness to stay sob, she acknowledged her problem with alcohol and willing to continue to improve and stay sober. She is lucid, no signs of tremor or confusion. No delirium tremens noted. Continue with vitamin
supplements
Fall precaution
# Hypokalemia
replaced
# Hyponatremia, resolved
# ETOH use disorder led to protein calorie malnutrition chronic illness due to inadequate PO nutritious diet consumption
#Hypokalemia hypomagnesemia
#Hypoalbuminemia
Dietary consulted
Counseled on complete alcohol cessation as patient with increased risk of falls leading to fractures, cerebral hemorrhage. Patient verbalized understanding.
#Mild hyponatremia likely secondary to dehydration
Resolved
#Suspected dysphagia
Chest X ray showing Mild subpleural opacity in the basilar segments of the left lower lobe. Diagnostic possibilities are (1) mild subsegmental atelectasis/scarring or (2) mild aspiration pneumonitis.
WBC normal. Afebrile. No hypoxia.
Continue with current diet.
Speech evaluation, ok for regular now.
#History of lumbar fracture status post vertebroplasty L2
#Severe protein caloric malnutrition of chronic illness and due to alcohol abuse
Liberalize diet
Ensure recommended
Albumin low noted
Encouraged to increase p.o. intake
DVT Px: SQH
Code: Full
Total discharge time spent to see the patient, examine the patient, review data and lab result, discuss discharge plan with patient, nursing staff around 65 minutes
Anticipated Discharge: Today
Subjective/Interval History
-
Date of Service: February 17, 2025
No sob
No chest pain
No abdominal pain
No fevers
She feels ready to leave hospital
Objective Data
-
Labs:
Laboratory Results
02/17/25
07:03
Sodium 137
Potassium 3.9
Chloride 108 H
Carbon Dioxide 27
BUN 3 L
Creatinine 0.5 L
Glucose 82
Calcium 9.2
Vital Signs:
Vital Signs
Temp Pulse Resp BP Pulse Ox
97.9 F 85 16 126/89 98
02/17/25 07:07 02/17/25 07:07 02/17/25 07:07 02/17/25 07:07 02/17/25 07:07
I&O
02/16/25 02/17/25 02/18/25
06:59 06:59 06:59
Intake Total 1850 / 1850 2319
Output Total 350 / 350
Balance 1500 / 1500 2319
--- NOTE | 2025-02-17 09:15 | CM ---
Addendum entered by Mallory Raman 02/17/25 10:44:
[facility] accepted today
tt hospitalist for COVID test to be ordered
IMM explained & signed. In chart
PLAN: [facility]
Report #: [phone]
Fax #: [phone]
transport forms on chart
Original Note:
Spoke with patient son Bret [phone] - would like SNF
Patient resides at [facility]
PT held yesterday
PT rec previously SNF vs. HH - son would like [facility] referral placed
referral placed in [facility]
LM with [facility] liaison
PLAN: SNF, pending acceptance/bed availability when stable
[2025-02-17 12:35] LABS: COVID-19 Antigen Negative (Negative)
--- NOTE | 2025-02-17 13:48 | W.DCSUMMARY ---
Discharge Summary
Discharge Data
Date of Admission: 02/13/25
Date of Discharge: 02/17/25
-
Pending Results: No
Hospital Course
79 years old female presented to the hospital with history of recurrent falls. Patient had history of alcohol abuse. Imaging studies including head scan did not show evidence of acute intracranial findings. She was found to have moderate
bilateral frontal/parietal lobes volume loss with moderate cerebellar volume loss, severe white matter leukoaraiosis in the frontal and parietal lobes, Chiari I malformation. Chest radiography showed chronic elevation posterior left hemidiaphragm,
mild subpleural opacity in basilar segments of the left lower lobe, complete collapse of L2/L1 vertebral body secondary to chronic insufficiency fractures. Hip x-ray showed no evidence of acute fracture, severe discogenic degenerative disease at
L5/S1, mild bilateral osteoarthritis of the hips with diffuse bone demineralization. Blood work showed mild leukocytosis, hyponatremia at 132, hypokalemia 2.8, hypomagnesemia 1.5. Urine culture did not show any growth. She was evaluated by
dietitian and diagnosed with severe protein calorie malnutrition due to poor oral intake. Patient admitted to excessive alcohol use and was preventing her from eating appropriate diet. She was counseled and verbalized understanding. Patient did
not have alcohol withdrawal symptoms. Electrolytes were replaced. She had normal thyroid-stimulating hormone level. She had normal vitamin B12 and folate level. Troponin was negative. Liver function test was normal. She started to eat better
with stabilizing of her potassium and sodium level. Patient remained hemodynamically stable and was evaluated by physical therap. PT recommended half-way facility placement. Patient was evaluated by case management and was discharged to
half-way facility in a stable condition.
Discharge Plan
-
Patient Disposition: Prison/SNF
Discharge Diagnosis/Procedures: Falls and ambulatory dysfunction likely 2/2 ETOH associated balance dysfunction, peripheral neuropathy.
Electrolyte imbalance, corrected
Severe protein calorie malnutrition
Alcohol use disorder
Diet: As tolerated
Blood Work: CBC & CMP & Mg in 1 week
Referrals:
Zackary Juan MD [Family Provider, Family Practice] - in one to two weeks
Prescriptions:
New
acetaminophen 325 mg Tablet
650 mg PO Q4HPRN PRN (Reason: mild pain/VARNER/temp> 100.4F) Qty: 10 0RF
polyethylene glycol 3350 17 gram Powder In Packet
17 g PO DAILYPRN PRN (Reason: constipation) Qty: 10 0RF
sennosides-docusate sodium 8.6-50 mg Tablet
1 tab PO BIDPRN PRN (Reason: constipation) Qty: 10 0RF
magnesium oxide 500 mg magnesium Tablet
500 mg PO BID Qty: 60 0RF
folic acid 1 mg Tablet
1 mg PO DAILY Qty: 30 0RF
cholecalciferol (vitamin D3) 50 mcg (2,000 unit) Tablet
50 mcg PO DAILY Qty: 30 0RF
thiamine mononitrate (vit B1) 100 mg Tablet
100 mg PO BID Qty: 60 0RF
multivitamin with folic acid [Tab-A-Leon] 400 mcg Tablet
1 tab PO DAILY Qty: 30 0RF
Continued
latanoprost 0.005 % Drops
1 drp LEFT EYE HS
dorzolamide-timolol 22.3-6.8 mg/mL Drops
1 drp BOTH EYES BID
Discharge Orders:
Discharge Patient (As Directed); Ordered 02/17/25
Ordered By: Cj Heart
Discharge Date and Time
Print Language: MALTESE
[2025-02-17 13:54] VITALS: BP 126/86
== END 2025-02-17 15:26 | DRG 896 ==
LOC: 3 WEST ACU 22:13
PROVIDERS: Hospitalist; Physician Assistant; Student in an Organized Health Care Education/Training Program; ADMITTING PHYSICIAN Internal Medicine; ATTENDING PHYSICIAN Internal Medicine; EMERGENCY PHYSICIAN Emergency Medicine; FAMILY PHYSICIAN Family Medicine
DX: F10.188 Alcohol abuse with other alcohol-induced disorder (principal); E43 Unspecified severe protein-calorie malnutrition; G93.5 Compression of brain; I47.19 Other supraventricular tachycardia; Z68.1 Body mass index [BMI] 19.9 or less, adult; E87.1 Hypo-osmolality and hyponatremia; M48.56XA Collapsed vertebra, not elsewhere classified, lumbar region, initial encounter for fracture; E86.0 Dehydration; R62.7 Adult failure to thrive; R29.6 Repeated falls; R26.89 Other abnormalities of gait and mobility; H26.9 Unspecified cataract; H40.9 Unspecified glaucoma; I10 Essential (primary) hypertension; R13.10 Dysphagia, unspecified; G62.9 Polyneuropathy, unspecified; G89.29 Other chronic pain; M47.812 Spondylosis without myelopathy or radiculopathy, cervical region; L40.9 Psoriasis, unspecified; E87.6 Hypokalemia; E83.42 Hypomagnesemia; E88.09 Other disorders of plasma-protein metabolism, not elsewhere classified; Z60.2 Problems related to living alone; Z11.52 Encounter for screening for COVID-19
CPT/HCPCS: 70450; 71046; 73523; 74230; 80048; 80053; 81003; 81015; 82077; 82550; 82607; 82728; 82746; 82962; 82977; 83735; 84100; 84443; 84484; 85025; 85027; 87070; 87086; 87811; 92523; 92526; 92610; 92611; 93005; 96374; 96375; 97162; 99285

== ENCOUNTER 2025-03-03 09:24 | Emergency (ER) | payer MEDICARE, OTHER, SELFPAY ==
[2025-03-03 09:34] VITALS: BP 115/77
[2025-03-03 09:38] VITALS: BMI 19.6
--- NOTE | 2025-03-03 09:48 | ED.GENMED ---
History of Present Illness
General
Chief Complaint: Change in Mental Status
Time Seen by Provider: 03/03/25 09:26
History of Present Illness
History of Present Illness:
80-year-old female with history of alcohol abuse, dementia, frequent falls presenting from nursing facility for change in mental status. Per nursing facility, patient was increasingly aggressive with staff yesterday and noted to be walking the
halls naked last evening. Patient on arrival denies any acute medical complaints. She notes cough, which has been ongoing for a few months. Per medics, patient noted to be at her baseline mental status. She denies any fever, chest pain,
difficulty breathing, pain, urinary complaints. No additional history obtained at this time
Past History
Past History
ED Past Medical History: HTN, Other (Cataracts, glaucoma) and Other (Chronic neck and low back pain. Cervical DJD. Psoriasis.)
Social History
Tobacco: Non-smoker
Alcohol: Daily (2-3 glasses of wine daily)
Drug: None
Personal:
Living: alone
Employment: Retired
Family History
Family History: Other (Noncontributory)
Phy Exam
Physical Exam
Physical Exam:
General: Well-appearing, no clinical signs of dehydration, nontoxic and in no acute distress
HEENT: protecting airway
Neck: appears supple
CV: Normal heart rate, regular rhythm
Resp: No accessory muscle use, no increased work of breathing, lungs clear to auscultation bilaterally
Abd: Soft and non-distended, no tenderness to palpation, normal bowel sounds
Extremities: No deformities, no swelling, no erythema, pulses and sensation intact
Neuro: alert, oriented to place and person
: deferred
Rectal: deferred
Psych: Normal affect
Skin: Intact
Course
Orders/Labs/Results
Orders:
Orders
03/03/25 09:36
CR Chest - 2 Views Urgent
Comment:
Reason For Exam: cough
03/03/25 09:37
CT Head W/o Iv Contrast Urgent
Comment:
Reason For Exam: AMS
03/03/25 09:41
Alcohol Urgent
Complete Blood Count/With Diff Urgent
Comprehensive Metabolic Panel Urgent
03/03/25 11:39
Urinalysis Reflex To Culture Urgent
Date Specimen was Collected: 03/03/25
Time Specimen was Collected: 11:39
Abnormal Lab Results
03/03/25
09:41
RBC 4.03 L 10^6/uL
(4.20-5.40)
MCH 32.8 H pg
(27.0-31.0)
Absolute Lymphs (auto) 0.8 L 10^3/uL
(1.2-3.4)
Absolute Monos (auto) 0.8 H 10^3/uL
(0.1-0.6)
Lymphocytes % 14.2 L %
(20.5-51.1)
Monocytes % 13.8 H %
(1.7-9.3)
Creatinine 0.5 L mg/dL
(0.6-1.0)
Total Protein 5.4 L g/dl
(6.3-8.2)
Albumin 2.9 L g/dl
(3.5-5.0)
03/03/25 09:41
03/03/25 09:41
Vital Signs
Initial and Last Documented VS:
Initial Vital Signs
Pulse Resp Pulse Ox
73 16 96
03/03/25 09:31 03/03/25 09:31 03/03/25 09:31
Last Documented Vital Signs
Pulse Resp BP Pulse Ox
97 23 116/74 95
03/03/25 10:15 03/03/25 10:15 03/03/25 10:03 07/08/25 10:15
MDM/Problems Addressed
MDM/Problems Addressed:
80-year-old female with history of dementia presenting from nursing facility for change in mental status. Vital signs on arrival are normal
On exam, patient is resting comfortably, no acute distress or discomfort. Patient currently without any acute medical complaints. No signs of trauma. Patient allegedly at baseline mental status per medics. Suspect that aggressive behavior could
be from decompensated dementia. She is currently cooperative here. Will screen with laboratory analysis and urinalysis. History of frequent falls, will screen with CT brain. Noted to be coughing in examination room, will obtain chest x-ray
imaging to ensure no acute pneumonia.
10:00 -patient's sons arrived to bedside notes that patient is currently at her baseline mental status. Patient has been having issues with her dementia in the past several weeks. Continue to suspect patient symptoms from underlying dementia.
12:15 -chest x-ray without acute cardiopulmonary disease. CT brain negative. Urine without sign of infection. Patient remained stable. Family notes that cough is been more productive as of recent. Will start patient on a inhaler, otherwise at
this time no signs of pneumonia. Return precautions discussed and patient family verbalized understanding
*Pulse Oximetry
SaO2: 96
Oxygen Mode of Delivery: Room air
Patient hypoxic: no
*Critical Care Note
Total Time (30-74mins, 75-104mins- exclusive of procedures): Not Applicable
ED Attending Note
-
Portions of this chart may have been created with voice recognition software.� Occasional wrong word or��sound alike� substitutions may have occurred due to the inherent limitations of voice recognition software.
Discharge Plan
Departure
Prescriptions:
No Action
latanoprost 0.005 % Drops
1 drp LEFT EYE HS
acetaminophen 325 mg Tablet
650 mg PO Q4HPRN PRN (Reason: mild pain/VARNER/temp> 100.4F) Qty: 10 0RF
polyethylene glycol 3350 17 gram Powder In Packet
17 g PO DAILYPRN PRN (Reason: constipation) Qty: 10 0RF
sennosides-docusate sodium 8.6-50 mg Tablet
1 tab PO BIDPRN PRN (Reason: constipation) Qty: 10 0RF
folic acid 1 mg Tablet
1 mg PO DAILY Qty: 30 0RF
cholecalciferol (vitamin D3) 50 mcg (2,000 unit) Tablet
50 mcg PO DAILY Qty: 30 0RF
thiamine mononitrate (vit B1) 100 mg Tablet
100 mg PO BID Qty: 60 0RF
magnesium hydroxide [Milk of Magnesia] 400 mg/5 mL Suspension
2,400 mg PO [id number] PRN (Reason: no bm x 2 days)
bisacodyl [Dulcolax (bisacodyl)] 10 mg Suppository
10 mg [place] DAILYPRN PRN (Reason: no bm x 8 hours after MOM)
Fleet Enema 19-7 gram/118 mL Enema
118 ml [place] DAILYPRN PRN (Reason: if no bm x 8 hr after suppository)
dorzolamide-timolol (PF) 2-0.5 % Dropperette
1 drp BOTH EYES BID
magnesium oxide 400 mg magnesium Tablet
400 mg PO BID
Referrals:
Ethan Deshpande MD [Family Provider, Family Practice]
Interventions
Interventions:
*Risk Screen - Suicide Last Done: 03/03/25 09:31
*General Assessment Last Done: 03/03/25 09:31
*Neglect/Abuse Screening Last Done: 03/03/25 10:07
*ED- Fall Risk Assessment Last Done: 03/03/25 09:31
*ED COVID-19 Vaccine History Last Done: 03/03/25 09:31
ED- Neurological Assessment Last Done: 03/03/25 09:47
Discharge Date and Time
Print Language: URDU
[2025-03-03 09:54] LABS: Hematocrit 39.1 % (37.0-47.0); Hemoglobin 13.2 g/dL (12.0-16.0); Mean Corp Hgb Conc. 33.8 g/dL (33.0-37.0); Mean Corpuscular Volume 97.0 fL (81.0-99.0); Nucleated Red Blood Cells % 0 %; Platelet Count 219 10^3/uL (130-400); Red Cell Dist. Width 13.2 % (11.5-14.5)
[2025-03-03 10:03] VITALS: BP 116/74
[2025-03-03 10:13] LABS: ALT (SGPT) 16 U/L (0-35); AST (SGOT) 22 U/L (14-36); Albumin 2.9 g/dl (3.5-5.0); Alkaline Phosphatase 82 U/L (38-126); Blood Urea Nitrogen 9 mg/dl (7-17); Calcium 8.8 mg/dl (8.4-10.2); Carbon Dioxide 29 mmol/L (22-30); Estimated Creatinine Clearance 55 ml/min; Glucose 93 mg/dl (70-99); Potassium 3.8 mmol/L (3.5-5.1); Sodium 135 mmol/L (135-145); Total Protein 5.4 g/dl (6.3-8.2); eGFR > 60.00
[2025-03-03 10:41] LABS: Chloride 103 mmol/L (98-107)
[2025-03-03 11:54] LABS: Urine Character Slightly Cloudy (Clear)
== END 2025-03-03 14:00 | disposition home or self-care (01) ==
LOC: EMR 09:24
PROVIDERS: EMERGENCY PHYSICIAN Student in an Organized Health Care Education/Training Program; FAMILY PHYSICIAN Family Medicine
DX: R41.82 Altered mental status, unspecified (principal); F03.90 Unspecified dementia, unspecified severity, without behavioral disturbance, psychotic disturbance, mood disturbance, and anxiety; F10.10 Alcohol abuse, uncomplicated; I10 Essential (primary) hypertension; M47.9 Spondylosis, unspecified; L40.9 Psoriasis, unspecified
CPT/HCPCS: 99284; 70450; 71046; 80053; 81003; 82077; 85025